=== PATIENT | male | born 1955 | race African-American/Black ===

== ENCOUNTER 2017-10-25 14:58 | Inpatient (IN) | payer SELFPAY ==
[~2017-10-25] VITALS: Ht 167.6 cm; Wt 100.2 kg
[2017-10-25 15:13] VITALS: BP 163/111
[2017-10-25] MEDS ORDERED: FURO-572 PO (15:24)
[2017-10-25] MEDS ORDERED: BACL10TA4 PO (15:24)
[2017-10-25] MEDS ORDERED: LIP80 PO (15:24)
[2017-10-25] MEDS ORDERED: LOSA50TA1 PO (15:24)
[2017-10-25 15:45] LABS: BASOPHILS # (AUTO) 0.1 K/uL (0.00-0.22); BASOPHILS % (AUTO) 1.1 % (0.0-2.0); EOSINOPHILS % (AUTO) 0.5 % (0.0-4.0); HEMATOCRIT 50.4 % (36-52); HEMOGLOBIN 16.2 g/dL (12.0-18.0); LYMPHOCYTES % (AUTO) 32.5 % (20.5-51.1); MEAN CORPUSCULAR HEMOGLOBIN 28 pg (27-31); MEAN CORPUSCULAR HGB CONC 32 g/dL (33-37); MEAN CORPUSCULAR VOLUME 87.3 fL (80-94); MONOCYTES # (AUTO) 0.4 K/uL (0.8-1.0); MONOCYTES % (AUTO) 6.9 % (1.7-9.3); NEUTROPHILS # (AUTO) 3.7 K/uL (1.8-7.7); PLATELET COUNT (AUTO) 232 K/uL (140-450); RED BLOOD CELL COUNT(AUTO) 5.77 MIL/uL (4.20-6.10); WHITE BLOOD COUNT (AUTO) 6.2 K/uL (4.8-10.8)
[2017-10-25 15:50] LABS: ANION GAP 13.7 (8-16); CARBON DIOXIDE 21.8 mmol/L (21-32); CREATININE 2.3 mg/dL (0.7-1.3); POTASSIUM 4.5 mmol/L (3.5-5.1)
[2017-10-25 15:56] LABS: ALBUMIN 2.8 g/dL (3.4-5.0); TOTAL BILIRUBIN 1.5 mg/dL (0.0-1.0)
[2017-10-25] MEDS ORDERED: FUROSEMIDE 40 MG/4 ML VIAL IVP ONE (16:35)
[2017-10-25] MEDS ORDERED: NACL 0.9% 1,000 ML IV SCH (17:07)
[2017-10-25] MEDS ORDERED: ACETAMINOPHEN 325 MG TAB PO PRN (17:10)
[2017-10-25] MEDS ORDERED: NITROGLYCERIN 0.4 MG TAB SL PRN (17:20)
[2017-10-25] MEDS ORDERED: ALBUTEROL SULFATE/IPRATROPIU 3 ML SOL IH PRN (17:25)
[2017-10-25 17:55] LABS: CHOL/HDL RATIO 2.9 (1-4.5); FREE T4 (FREE THYROXINE) 1.35 ng/dL (0.76-1.46); MAGNESIUM 1.9 mg/dL (1.8-2.4); PHOSPHORUS 4.5 mg/dL (2.5-4.9); THYROID STIMULATING HORMONE 0.93 uIU/mL (0.34-3.74)
[2017-10-25 18:00] VITALS: BP 167/111
[2017-10-25] MEDS ORDERED: LOSARTAN 50 MG TAB PO ONE (18:05)
[2017-10-25] MEDS ORDERED: hydrALAZINE 20 MG/ML VIAL IVP ONE (18:15)
[2017-10-25] MEDS ORDERED: LACTULOSE 20 GM/30 ML UDC PO ONE (18:15)
[2017-10-25 18:27] LABS: APPEARANCE,URINE CLEAR (CLEAR); BILIRUBIN,URINE NEGATIVE (NEGATIVE); BLOOD, URINE NEGATIVE (NEGATIVE); COLOR,URINE YELLOW (YELLOW); LEUKOCYTE ESTERASE ,URINE NEGATIVE (NEGATIVE); NITRITE, URINE NEGATIVE (NEGATIVE); UGLUCOSE NEGATIVE (NEGATIVE)
[2017-10-25 18:29] LABS: BARBITURATE, URINE NEG. ng/ml (NEG <=200); BENZODIAZEPINE, URINE NEG. ng/mL (NEG <=200); CANNABINOID, URINE NEG. ng/mL (NEG <=50); COCAINE, URINE POS. ng/mL (NEG <=300); OPIATE, URINE NEG. ng/mL (NEG <=2000); PHENCYCLIDINE SCREEN,URINE NEG. ng/mL (NEG <=25)
[2017-10-25] MEDS ORDERED: DEXT 5% / NACL 0.9% 500 ML IV SCH (18:50)
[2017-10-25] MEDS ORDERED: DEXTROSE 50% 50 ML SYR IVP PRN (18:50)
[2017-10-25] MEDS: ALBUTEROL SULFATE/IPRATROPIU 3 ML SOL IH SCH (19:35)
[2017-10-25 20:00] VITALS: BP 132/80
[2017-10-25] MEDS: METOPROLOL 25 MG TAB PO SCH (21:00)
[2017-10-25] MEDS: DOCUSATE SODIUM 100 MG GELCAP PO SCH (21:00)
[2017-10-25] MEDS: BLOOD GLUCOSE MONITORING 1 DEV DEV FS SCH (21:02)
[2017-10-25] MEDS ORDERED: DEXT 5% /NACL 0.9% 1,000 ML IV SCH (22:10)
[2017-10-26] VITALS: BP 137/89
[2017-10-26 04:00] VITALS: BP 144/84
[2017-10-26] MEDS: BLOOD GLUCOSE MONITORING 1 DEV DEV FS SCH ×4 (06:07→20:38)
[2017-10-26] MEDS: ALBUTEROL SULFATE/IPRATROPIU 3 ML SOL IH SCH ×3 (07:34→19:43)
[2017-10-26 08:00] VITALS: BP 155/101
[2017-10-26] MEDS ORDERED: FUROSEMIDE 20 MG TAB PO SCH (09:00)
[2017-10-26] MEDS ORDERED: FUROSEMIDE 20 MG/2 ML VIAL IVP SCH ×3 (09:00→21:00)
[2017-10-26] MEDS: DOCUSATE SODIUM 100 MG GELCAP PO SCH ×2 (09:00→20:39)
[2017-10-26] MEDS ORDERED: NACL 0.9% 500 ML IV ONE (09:15)
[2017-10-26] MEDS: FAMOTIDINE 20 MG TAB PO SCH (09:20)
[2017-10-26] MEDS: ATORVASTATIN 80 MG TAB PO SCH (09:20)
[2017-10-26] MEDS: ASPIRIN 81 MG TAB.CHEW PO SCH (09:21)
[2017-10-26] MEDS: METOPROLOL 25 MG TAB PO SCH ×2 (09:21→20:39)
[2017-10-26] MEDS: LOSARTAN 50 MG TAB PO SCH (09:21)
[2017-10-26 09:23] LABS: BASOPHILS # (AUTO) 0.1 K/uL (0.00-0.22); BASOPHILS % (AUTO) 1.7 % (0.0-2.0); EOSINOPHILS % (AUTO) 0.8 % (0.0-4.0); HEMATOCRIT 51.6 % (36-52); HEMOGLOBIN 16.6 g/dL (12.0-18.0); LYMPHOCYTES # (AUTO) 2.2 K/uL (2.0-11.5); LYMPHOCYTES % (AUTO) 37.2 % (20.5-51.1); MEAN CORPUSCULAR HEMOGLOBIN 28 pg (27-31); MEAN CORPUSCULAR HGB CONC 32 g/dL (33-37); MEAN CORPUSCULAR VOLUME 87.4 fL (80-94); MONOCYTES # (AUTO) 0.5 K/uL (0.8-1.0); MONOCYTES % (AUTO) 8.9 % (1.7-9.3); NEUTROPHILS % (AUTO) 51.4 % (42.2-75.2); PLATELET COUNT (AUTO) 219 K/uL (140-450); RED BLOOD CELL COUNT(AUTO) 5.91 MIL/uL (4.20-6.10); RED CELL DISTRIBUTION WIDTH 16.2 % (11.6-13.7); WHITE BLOOD COUNT (AUTO) 5.9 K/uL (4.8-10.8)
[2017-10-26 12:00] VITALS: BP 143/96
[2017-10-26 12:28] LABS: ANION GAP 14.3 (8-16); CARBON DIOXIDE 24.3 mmol/L (21-32); CREATININE 2.1 mg/dL (0.7-1.3); POTASSIUM 3.6 mmol/L (3.5-5.1)
[2017-10-26 12:34] LABS: MAGNESIUM 1.9 mg/dL (1.8-2.4); PHOSPHORUS 4.3 mg/dL (2.5-4.9)
[2017-10-26] MEDS: INSULIN LISPRO SLIDING SCALE 100 UNITS/ML VIAL SUBQ PRN (13:12)
[2017-10-26] MEDS: NACL 0.9% 1,000 ML IV SCH ×2 (14:15→21:32)
[2017-10-26 16:00] VITALS: BP 142/79
[2017-10-26] MEDS: FUROSEMIDE 20 MG/2 ML VIAL IVP SCH (17:14)
[2017-10-26 19:50] VITALS: BP 134/92
[2017-10-27] VITALS: BP 112/93
[2017-10-27 04:00] VITALS: BP 123/89
[2017-10-27] MEDS: BLOOD GLUCOSE MONITORING 1 DEV DEV FS SCH ×3 (06:03→16:58)
[2017-10-27] MEDS: ALBUTEROL SULFATE/IPRATROPIU 3 ML SOL IH SCH ×2 (06:43→12:41)
[2017-10-27 07:58] VITALS: BP 154/102
[2017-10-27] MEDS: LOSARTAN 50 MG TAB PO SCH (08:38)
[2017-10-27] MEDS: ATORVASTATIN 80 MG TAB PO SCH (08:39)
[2017-10-27] MEDS: FAMOTIDINE 20 MG TAB PO SCH (08:40)
[2017-10-27] MEDS: METOPROLOL 25 MG TAB PO SCH (08:40)
[2017-10-27] MEDS: ASPIRIN 81 MG TAB.CHEW PO SCH (08:41)
[2017-10-27] MEDS: FUROSEMIDE 20 MG/2 ML VIAL IVP SCH ×2 (08:42→17:29)
[2017-10-27] MEDS: DOCUSATE SODIUM 100 MG GELCAP PO SCH (09:00)
[2017-10-27] MEDS: INSULIN LISPRO SLIDING SCALE 100 UNITS/ML VIAL SUBQ PRN (11:54)
[2017-10-27 12:00] VITALS: BP 141/103
[2017-10-27] MEDS ORDERED: FURO-572 PO (12:40)
[2017-10-27] MEDS ORDERED: BACL10TA4 PO (12:40)
[2017-10-27] MEDS ORDERED: LOSA50TA1 PO (12:40)
[2017-10-27] MEDS ORDERED: LIP80 PO (12:40)
[2017-10-27] MEDS ORDERED: METO25TA PO (14:59)
[2017-10-27 15:25] LABS: BASOPHILS # (AUTO) 0.1 K/uL (0.00-0.22); BASOPHILS % (AUTO) 1.7 % (0.0-2.0); EOSINOPHILS # (AUTO) 0.1 K/uL (0-0.4); EOSINOPHILS % (AUTO) 1.3 % (0.0-4.0); HEMATOCRIT 54.4 % (36-52); HEMOGLOBIN 17.3 g/dL (12.0-18.0); LYMPHOCYTES # (AUTO) 2.1 K/uL (2.0-11.5); LYMPHOCYTES % (AUTO) 34.3 % (20.5-51.1); MEAN CORPUSCULAR HEMOGLOBIN 28 pg (27-31); MEAN CORPUSCULAR HGB CONC 32 g/dL (33-37); MEAN CORPUSCULAR VOLUME 87.6 fL (80-94); MONOCYTES # (AUTO) 0.6 K/uL (0.8-1.0); MONOCYTES % (AUTO) 9.9 % (1.7-9.3); NEUTROPHILS # (AUTO) 3.3 K/uL (1.8-7.7); NEUTROPHILS % (AUTO) 52.8 % (42.2-75.2); PLATELET COUNT (AUTO) 198 K/uL (140-450); RED BLOOD CELL COUNT(AUTO) 6.21 MIL/uL (4.20-6.10); RED CELL DISTRIBUTION WIDTH 16.1 % (11.6-13.7); WHITE BLOOD COUNT (AUTO) 6.2 K/uL (4.8-10.8)
[2017-10-27 15:49] LABS: ANION GAP 11.2 (8-16); CARBON DIOXIDE 30.6 mmol/L (21-32); CREATININE 2.2 mg/dL (0.7-1.3); POTASSIUM 3.8 mmol/L (3.5-5.1)
[2017-10-27 15:52] LABS: PHOSPHORUS 4.5 mg/dL (2.5-4.9)
[2017-10-27 16:00] VITALS: BP 136/92
[2017-10-27] MEDS ORDERED: PNEUMOCOCCAL VACCINE 23 MCG/0.5 ML VIAL IMVAC SCH (17:10)
== END 2017-10-27 18:12 | disposition home or self-care (01) | DRG 291 ==
LOC: MED 14:58 → MTU 17:14
PROVIDERS: ADMIT Family Medicine; ATTEND Family Medicine
DX: I11.0 Hypertensive heart disease with heart failure (principal); N17.0 Acute kidney failure with tubular necrosis; E43 Unspecified severe protein-calorie malnutrition; G93.41 Metabolic encephalopathy; D68.59 Other primary thrombophilia; E11.65 Type 2 diabetes mellitus with hyperglycemia; I16.1 Hypertensive emergency; I50.43 Acute on chronic combined systolic (congestive) and diastolic (congestive) heart failure; K21.9 Gastro-esophageal reflux disease without esophagitis; R74.0 Nonspecific elevation of levels of transaminase and lactic acid dehydrogenase [LDH]; E78.5 Hyperlipidemia, unspecified; Z68.35 Body mass index [BMI] 35.0-35.9, adult; Z88.8 Allergy status to other drugs, medicaments and biological substances; Z79.899 Other long term (current) drug therapy; Z79.4 Long term (current) use of insulin
CPT/HCPCS: 36415; 71045; 76700; 80048; 80053; 80305; 81003; 82140; 82948; 83036; 83605; 83735; 83880; 84100; 84439; 84443; 84484; 85025; 85610; 85730; 87040; 87081; 87086; 90732; 93005; 93925; 93970; 94640; 96374; 99285; J0360; J1815; J1940; J7030; J7042; J7620; Q0092

== ENCOUNTER 2017-11-19 09:50 | Inpatient (IN) | payer SELFPAY ==
[~2017-11-19] VITALS: Ht 170.2 cm; Wt 99.8 kg
[~2017-11-19 09:50] MED LIST: BACL10TA4 PO; FURO-572 PO; LIP80 PO; LOSA50TA1 PO; METO25TA PO
[2017-11-19 10:05] VITALS: BP 155/87
[2017-11-19] MEDS ORDERED: NITROGLYCERIN 2% 1 GM PKT TP ONE (10:45)
[2017-11-19] MEDS ORDERED: ALBUTEROL SULFATE/IPRATROPIU 3 ML SOL IH ONE (10:45)
[2017-11-19] MEDS ORDERED: FUROSEMIDE 100 MG/10 ML VIAL IVP ONE (10:45)
[2017-11-19 11:19] LABS: HEMATOCRIT 48.1 % (36-52); HEMOGLOBIN 15.8 g/dL (12.0-18.0); MEAN CORPUSCULAR HEMOGLOBIN 28 pg (27-31); MEAN CORPUSCULAR HGB CONC 33 g/dL (33-37); MEAN CORPUSCULAR VOLUME 85.9 fL (80-94); PLATELET COUNT (AUTO) 231 K/uL (140-450)
[2017-11-19 11:32] LABS: EOSINOPHILS % (MANUAL) 2 % (0-4); LYMPHOCYTES % (MANUAL) 30 % (20-46); MONOCYTES % (MANUAL) 8 % (5-12)
[2017-11-19 11:33] LABS: PROTHROMBIN TIME 13.3 secs (10.8-13.4)
[2017-11-19 11:39] LABS: ALBUMIN 2.8 g/dL (3.4-5.0); ANION GAP 12.5 (8-16); CARBON DIOXIDE 23.6 mmol/L (21-32); CREATININE 2.3 mg/dL (0.7-1.3); POTASSIUM 4.1 mmol/L (3.5-5.1)
[2017-11-19] MEDS ORDERED: ACETAMINOPHEN 325 MG TAB PO PRN (13:00)
[2017-11-19] MEDS ORDERED: DOCUSATE SODIUM 100 MG GELCAP PO PRN (13:00)
[2017-11-19] MEDS ORDERED: HYDROcodone/APAP 5/325 MG 1 TAB TAB PO PRN (13:00)
[2017-11-19] MEDS ORDERED: ONDANSETRON 4 MG/2 ML VIAL IM/IVP PRN (13:00)
[2017-11-19 14:00] VITALS: BP 144/96
[2017-11-19] MEDS ORDERED: DEXTROSE 50% 50 ML SYR IVP PRN (14:05)
[2017-11-19] MEDS ORDERED: CARVEDILOL 3.125 MG TAB PO SCH (14:30)
[2017-11-19 16:00] VITALS: BP 144/96
[2017-11-19] MEDS ORDERED: ALBUTEROL SULFATE/IPRATROPIU 3 ML SOL IH SCH ×2 (16:00)
[2017-11-19] MEDS: BLOOD GLUCOSE MONITORING 1 DEV DEV FS SCH ×2 (16:30→21:10)
[2017-11-19] MEDS: NACL 0.9% 1,000 ML IV SCH (16:39)
[2017-11-19] MEDS: FUROSEMIDE 40 MG/4 ML VIAL IVP SCH (17:29)
[2017-11-19 18:26] LABS: THYROID STIMULATING HORMONE 0.9 uIU/mL (0.34-3.74)
[2017-11-19] MEDS: ALBUTEROL SULFATE/IPRATROPIU 3 ML SOL IH SCH (19:39)
[2017-11-19 20:00] VITALS: BP 137/91
[2017-11-19] MEDS: CARVEDILOL 3.125 MG TAB PO SCH (21:10)
[2017-11-20] VITALS (7 sets, daily range): BP systolic 125–151; BP diastolic 62–99
[2017-11-20 01:48] LABS: APPEARANCE,URINE CLEAR (CLEAR); BILIRUBIN,URINE NEGATIVE (NEGATIVE); BLOOD, URINE NEGATIVE (NEGATIVE); COLOR,URINE YELLOW (YELLOW); LEUKOCYTE ESTERASE ,URINE NEGATIVE (NEGATIVE); NITRITE, URINE NEGATIVE (NEGATIVE); PH,URINE 5.5 (5.0-9.0); UGLUCOSE NEGATIVE (NEGATIVE)
[2017-11-20 01:55] LABS: BARBITURATE, URINE NEG. ng/ml (NEG <=200); BENZODIAZEPINE, URINE NEG. ng/mL (NEG <=200); CANNABINOID, URINE NEG. ng/mL (NEG <=50); COCAINE, URINE POS. ng/mL (NEG <=300); OPIATE, URINE NEG. ng/mL (NEG <=2000); PHENCYCLIDINE SCREEN,URINE NEG. ng/mL (NEG <=25)
[2017-11-20] MEDS: BLOOD GLUCOSE MONITORING 1 DEV DEV FS SCH ×4 (05:47→20:20)
[2017-11-20 07:33] LABS: BASOPHILS # (AUTO) 0.1 K/uL (0.00-0.22); BASOPHILS % (AUTO) 1.6 % (0.0-2.0); EOSINOPHILS # (AUTO) 0.2 K/uL (0-0.4); EOSINOPHILS % (AUTO) 2.4 % (0.0-4.0); HEMATOCRIT 49.8 % (36-52); HEMOGLOBIN 16.5 g/dL (12.0-18.0); LYMPHOCYTES # (AUTO) 3.1 K/uL (2.0-11.5); LYMPHOCYTES % (AUTO) 41.4 % (20.5-51.1); MEAN CORPUSCULAR HEMOGLOBIN 28 pg (27-31); MEAN CORPUSCULAR HGB CONC 33 g/dL (33-37); MEAN CORPUSCULAR VOLUME 84.5 fL (80-94); MONOCYTES # (AUTO) 0.5 K/uL (0.8-1.0); MONOCYTES % (AUTO) 6.8 % (1.7-9.3); NEUTROPHILS # (AUTO) 3.6 K/uL (1.8-7.7); NEUTROPHILS % (AUTO) 47.8 % (42.2-75.2); PLATELET COUNT (AUTO) 256 K/uL (140-450); RED BLOOD CELL COUNT(AUTO) 5.89 MIL/uL (4.20-6.10); RED CELL DISTRIBUTION WIDTH 15.9 % (11.6-13.7); WHITE BLOOD COUNT (AUTO) 7.4 K/uL (4.8-10.8)
[2017-11-20 08:08] LABS: ANION GAP 12.5 (8-16); CARBON DIOXIDE 29.3 mmol/L (21-32); CREATININE 2.2 mg/dL (0.7-1.3); POTASSIUM 3.8 mmol/L (3.5-5.1)
[2017-11-20] MEDS: ALBUTEROL SULFATE/IPRATROPIU 3 ML SOL IH SCH ×3 (08:08→20:01)
[2017-11-20 08:13] LABS: MAGNESIUM 1.8 mg/dL (1.8-2.4); PHOSPHORUS 4.1 mg/dL (2.5-4.9)
[2017-11-20 08:21] LABS: T4 (THYROXINE) 7.1 ug/dL (4.5-12.0)
[2017-11-20] MEDS: CARVEDILOL 3.125 MG TAB PO SCH ×2 (08:54→20:23)
[2017-11-20] MEDS: ATORVASTATIN 20 MG TAB PO SCH (08:54)
[2017-11-20] MEDS: FUROSEMIDE 40 MG/4 ML VIAL IVP SCH ×2 (08:55→16:44)
[2017-11-20] MEDS ORDERED: ATORVASTATIN 80 MG TAB PO SCH (09:00)
[2017-11-20] MEDS: INSULIN LISPRO SLIDING SCALE 100 UNITS/ML VIAL SUBQ PRN (12:15)
[2017-11-20] MEDS: NACL 0.9% 1,000 ML IV SCH (12:58)
[2017-11-21 04:00] VITALS: BP 146/91
[2017-11-21] MEDS: BLOOD GLUCOSE MONITORING 1 DEV DEV FS SCH ×2 (06:29→11:30)
[2017-11-21 06:43] LABS: BASOPHILS # (AUTO) 0.1 K/uL (0.00-0.22); BASOPHILS % (AUTO) 0.9 % (0.0-2.0); EOSINOPHILS # (AUTO) 0.1 K/uL (0-0.4); EOSINOPHILS % (AUTO) 1.9 % (0.0-4.0); HEMATOCRIT 47.7 % (36-52); HEMOGLOBIN 15.7 g/dL (12.0-18.0); LYMPHOCYTES # (AUTO) 2.7 K/uL (2.0-11.5); LYMPHOCYTES % (AUTO) 45.5 % (20.5-51.1); MEAN CORPUSCULAR HEMOGLOBIN 28 pg (27-31); MEAN CORPUSCULAR HGB CONC 33 g/dL (33-37); MEAN CORPUSCULAR VOLUME 83.4 fL (80-94); MONOCYTES # (AUTO) 0.4 K/uL (0.8-1.0); MONOCYTES % (AUTO) 7.3 % (1.7-9.3); NEUTROPHILS # (AUTO) 2.7 K/uL (1.8-7.7); NEUTROPHILS % (AUTO) 44.4 % (42.2-75.2); PLATELET COUNT (AUTO) 215 K/uL (140-450); RED BLOOD CELL COUNT(AUTO) 5.72 MIL/uL (4.20-6.10); RED CELL DISTRIBUTION WIDTH 15.9 % (11.6-13.7)
[2017-11-21 07:26] LABS: ANION GAP 15.5 (8-16); CARBON DIOXIDE 30.5 mmol/L (21-32)
[2017-11-21] MEDS: ALBUTEROL SULFATE/IPRATROPIU 3 ML SOL IH SCH (07:38)
[2017-11-21 08:00] VITALS: BP 142/94
[2017-11-21] MEDS: FUROSEMIDE 40 MG/4 ML VIAL IVP SCH (09:03)
[2017-11-21] MEDS: ATORVASTATIN 20 MG TAB PO SCH (09:04)
[2017-11-21] MEDS: CARVEDILOL 3.125 MG TAB PO SCH (09:05)
[2017-11-21] MEDS ORDERED: ATOR20TA40 PO (11:57)
[2017-11-21] MEDS ORDERED: CARV3.122 PO (11:57)
[2017-11-21 12:00] VITALS: BP 138/93
[2017-11-21] MEDS ORDERED: POTA10TE30 PO (12:39)
[2017-11-21] MEDS: NACL 0.9% 1,000 ML IV SCH (12:40)
[2017-11-21] MEDS: INSULIN LISPRO SLIDING SCALE 100 UNITS/ML VIAL SUBQ PRN (12:44)
== END 2017-11-21 13:22 | disposition home or self-care (01) | DRG 291 ==
LOC: MED 09:50 → MTU 13:01
PROVIDERS: ADMIT General Practice; ATTEND General Practice
DX: I13.0 Hypertensive heart and chronic kidney disease with heart failure and stage 1 through stage 4 chronic kidney disease, or unspecified chronic kidney disease (principal); E43 Unspecified severe protein-calorie malnutrition; N17.0 Acute kidney failure with tubular necrosis; D68.59 Other primary thrombophilia; E87.0 Hyperosmolality and hypernatremia; N18.9 Chronic kidney disease, unspecified; I50.9 Heart failure, unspecified; E11.65 Type 2 diabetes mellitus with hyperglycemia; Z68.34 Body mass index [BMI] 34.0-34.9, adult; J45.909 Unspecified asthma, uncomplicated; R74.0 Nonspecific elevation of levels of transaminase and lactic acid dehydrogenase [LDH]; E78.5 Hyperlipidemia, unspecified; I51.7 Cardiomegaly; F14.90 Cocaine use, unspecified, uncomplicated; E11.22 Type 2 diabetes mellitus with diabetic chronic kidney disease; Z88.8 Allergy status to other drugs, medicaments and biological substances; I08.3 Combined rheumatic disorders of mitral, aortic and tricuspid valves
CPT/HCPCS: 36415; 71045; 80048; 80053; 80305; 81003; 82948; 83036; 83690; 83735; 83880; 84100; 84436; 84443; 84479; 84484; 85025; 85610; 85730; 87081; 93005; 93970; 94640; 96374; 97110; 97116; 97530; 99285; J1815; J1940; J7030; J7620; Q0092